=== PATIENT | female | born 1980 ===

== ENCOUNTER 2019-04-14 16:06 | Inpatient (IN) | payer BC ==
[2019-04-14] MEDS ORDERED: Sodium Chloride 0.9% 10 ML SDV IV PRN ×2 (16:32→16:33)
[2019-04-14] MEDS ORDERED: Sodium Chloride 0.9% 2.5 ML Syringe FLUSH PRN ×2 (16:32→16:33)
[2019-04-14] MEDS ORDERED: Sodium Chloride 0.9% 10 ML Syringe FLUSH PRN ×2 (16:32→16:33)
[2019-04-14] MEDS ORDERED: Carboprost Tromethamine 250 MCG/1 ML Amp IM PRN (16:33)
[2019-04-14] MEDS ORDERED: Lidocaine 1% 50 ML MDV INJECT PRN (16:33)
[2019-04-14] MEDS ORDERED: Water For Irrigation,Sterile 1,000 ML Container IRR PRN (16:33)
[2019-04-14] MEDS ORDERED: Misoprostol 200 MCG Tab PO PRN (16:33)
[2019-04-14] MEDS ORDERED: Misoprostol 25 MCG (1/4 of 100 MCG) Tab VAG PRN (16:33)
[2019-04-14] MEDS ORDERED: Methylergonovine 0.2 MG/1 ML Amp IM PRN (16:33)
[2019-04-14] MEDS ORDERED: Butorphanol 1 MG/ML SDV IVPUSH PRN (16:33)
[2019-04-14] MEDS ORDERED: Terbutaline 1 MG/ML SDV SUBCUT PRN (16:33)
[2019-04-14] MEDS ORDERED: Tranexamic Acid 1,000 MG in Sodium Chloride 0.9% 100 ML IV PRN (16:33)
[2019-04-14] MEDS ORDERED: Nalbuphine 10 MG/1 ML Vial IVPUSH PRN (16:33)
[2019-04-14] MEDS ORDERED: Ampicillin 2 GM in Sodium Chloride 0.9% 100 ML IV ONE (16:33)
[2019-04-14] MEDS ORDERED: Ondansetron 4 MG/2 ML SDV IVPUSH PRN (16:33)
[2019-04-14] MEDS ORDERED: Oxytocin/0.9 % Sodium Chloride 30 UNIT/500 ML BAG IV SCH ×2 (16:45)
[2019-04-14] MEDS: Lactated Ringers 1,000 ML IV SCH (17:09)
[2019-04-14 17:26] LABS: BLOOD UREA NITROGEN,BUN 6 mg/dL (7.0-18.0); CARBON DIOXIDE,CO2 19.8 mmol/L (21.0-32.0); CHLORIDE,CL 102 mmol/L (98-107); GLUCOSE RANDOM 80 mg/dL (74-106); POTASSIUM,K 3.6 mmol/L (3.5-5.1); SODIUM,NA 137 mmol/L (136-145)
[2019-04-14] MEDS: Labetalol 100 MG/20 ML MDV IVPUSH PRN ×3 (17:29→19:42)
[2019-04-14] MEDS: Misoprostol 25 MCG (1/4 of 100 MCG) Tab VAG PRN ×2 (17:40→22:10)
[2019-04-14] MEDS ORDERED: Labetalol 100 MG/20 ML MDV ONE (20:16)
[2019-04-14] MEDS ORDERED: hydrALAZINE 20 MG/ML SDV IVPUSH ONE (20:18)
[2019-04-14] MEDS ORDERED: hydrALAZINE 20 MG/ML SDV ONE (20:18)
[2019-04-14] MEDS ORDERED: Acetaminophen 500 MG Tab PO PRN (21:36)
[2019-04-14] MEDS ORDERED: Acetaminophen 500 MG Tab ONE (21:40)
[2019-04-14] MEDS: Ampicillin 1 GM in Sodium Chloride 0.9% 50 ML IV SCH (21:48)
[2019-04-15] MEDS: Ampicillin 1 GM in Sodium Chloride 0.9% 50 ML IV SCH ×4 (01:37→13:23)
[2019-04-15] MEDS: Misoprostol 25 MCG (1/4 of 100 MCG) Tab VAG PRN ×2 (01:58→05:48)
[2019-04-15] MEDS ORDERED: diphenhydrAMINE 25 MG Cap PO ONE (02:25)
[2019-04-15] MEDS ORDERED: diphenhydrAMINE 25 MG Cap ONE (02:27)
[2019-04-15] MEDS ORDERED: Calcium Gluconate 10% 1 GM/10 ML SDV IV PRN (02:54)
[2019-04-15] MEDS ORDERED: Magnesium Sulfate/Water 4 GM in Premix Bag 1 BAG IV ONE (02:54)
[2019-04-15] MEDS ORDERED: Magnesium Sulfate/Water 20 GM/500 ML BAG IV SCH (03:00)
[2019-04-15] MEDS ORDERED: Labetalol 100 MG Tab ONE (03:21)
[2019-04-15] MEDS: Labetalol 100 MG Tab PO SCH ×2 (03:23→11:08)
[2019-04-15] MEDS: Lactated Ringers 1,000 ML IV SCH (08:55)
--- NOTE | 2019-04-15 08:56 | PCM.PREANE ---
Preanesthetic Assessment - Anesthesia/Transfusion/Family Hx Anesthesia History: Prior Anesthesia Without Reaction Family History of Anesthesia Reaction: No Transfusion History: No Prior Transfusion(s) - Review of Systems General: No Symptoms Pulmonary: No Symptoms Cardiovascular: No Symptoms Gastrointestinal: No Symptoms Neurological: No Symptoms Other: Reports: None - Physical Assessment NPO Status Date: 04/15/19 NPO Status Time: 01:00 Vital Signs: Last Vital Signs Temp Pulse 89 04/15/19 03:23 Resp BP 161/93 H 04/15/19 03:23 Pulse Ox Height: 1.7 m Weight: 114.804 kg ASA Class: 2E Mental Status: Alert & Oriented x3 Airway Class: Mallampati = 3 Dentition: Reports: Normal Dentition, Bridge (left lower bridge) Thyro-Mental Finger Breadths: 3 Mouth Opening Finger Breadths: 3 ROM/Head Extension: Full Lungs: Clear to Auscultation, Normal Respiratory Effort Cardiovascular: Regular Rate, Regular Rhythm - Lab Values: Laboratory Last Values WBC 9.05 K/uL (4.0-11.0) 04/14/19 16:51 RBC 3.98 M/uL (4.30-5.90) L 04/14/19 16:51 Hgb 12.5 g/dL (12.0-16.0) 04/14/19 16:51 Hct 36.9 % (36.0-46.0) 04/14/19 16:51 MCV 92.7 fL (80.0-98.0) 04/14/19 16:51 MCH 31.4 pg (27.0-32.0) 04/14/19 16:51 MCHC 33.9 g/dL (31.0-37.0) 04/14/19 16:51 RDW Std Deviation 48.3 fl (28.0-62.0) 04/14/19 16:51 RDW Coeff of Meliton 14 % (11.0-15.0) 04/14/19 16:51 Plt Count 171 K/uL (150-400) 04/14/19 16:51 MPV 11.40 fL (7.40-12.00) 04/14/19 16:51 Nucleated RBC % 0.0 /100WBC 04/14/19 16:51 Nucleated RBCs # 0 K/uL 04/14/19 16:51 Sodium 137 mmol/L (136-145) 04/14/19 16:51 Potassium 3.6 mmol/L (3.5-5.1) 04/14/19 16:51 Chloride 102 mmol/L (98-107) 04/14/19 16:51 Carbon Dioxide 19.8 mmol/L (21.0-32.0) L 04/14/19 16:51 BUN 6 mg/dL (7.0-18.0) L 04/14/19 16:51 Creatinine 0.6 mg/dL (0.6-1.0) 04/14/19 16:51 Est Cr Clr Drug Dosing 124.84 mL/min 04/14/19 16:51 Estimated GFR (MDRD) > 60.0 ml/min 04/14/19 16:51 Glucose 80 mg/dL (74-106) 04/14/19 16:51 Uric Acid 4.9 mg/dL (2.6-7.2) 04/14/19 16:51 Calcium 8.9 mg/dL (8.5-10.1) 04/14/19 16:51 Total Bilirubin 0.6 mg/dL (0.2-1.0) 04/14/19 16:51 AST 26 IU/L (15-37) 04/14/19 16:51 ALT 16 IU/L (14-63) 04/14/19 16:51 Alkaline Phosphatase 92 U/L (46-116) 04/14/19 16:51 Total Protein 7.1 g/dL (6.4-8.2) 04/14/19 16:51 Albumin 2.6 g/dL (3.4-5.0) L 04/14/19 16:51 Globulin 4.5 g/dL (2.6-4.0) H 04/14/19 16:51 Albumin/Globulin Ratio 0.6 (0.9-1.6) L 04/14/19 16:51 Ur Random Creatinine 63.1 mg/dL 04/14/19 20:44 U Random Total Protein 24.1 mg/dL (<11.9) H 04/14/19 20:44 Protein/Creatinin Ratio 0.4 04/14/19 20:44 Blood Type A POSITIVE 04/14/19 16:51 Antibody Screen NEGATIVE 04/14/19 16:51 - Allergies Allergies/Adverse Reactions: Allergies Allergy/AdvReac Type Severity Reaction Status Date / Time No Known Allergies Allergy Verified 04/14/19 16:33 - Acknowledgements Anesthesia Type Planned: Epidural Pt an Appropriate Candidate for the Planned Anesthesia: Yes Alternatives and Risks of Anesthesia Discussed w Pt/Guardian: Yes Pt/Guardian Understands and Agrees with Anesthesia Plan: Yes PreAnesthesia Questionnaire - Past Health History Medical/Surgical History: Denies Medical/Surgical History HEENT History: Reports: None Cardiovascular History: Reports: Hypertension (chronic htn) Respiratory History: Reports: None Genitourinary History: Reports: None 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: Musculoskeletal History: Reports: None Neurological History: Reports: None Psychiatric History: Reports: None Endocrine/Metabolic History: Reports: Hypothyroidism, Obesity/BMI 30+ Hematologic History: Reports: None - Infectious Disease History Infectious Disease History: Reports: Chicken Pox - Past Surgical History HEENT Surgical History: Reports: None Endocrine Surgical History: Reports: None Musculoskeletal Surgical History: Reports: Other (See Below) ( reduction of fracture as a child.) - SUBSTANCE USE Smoking Status *Q: Never Smoker Tobacco Use Within Last Twelve Months: No Second Hand Smoke Exposure: No Recreational Drug Use History: No - CURRENT (IN HOUSE) MEDS Current Meds: Current Medications Acetaminophen (Tylenol Extra Strength) 1,000 mg PO Q6H PRN PRN Reason: Pain Last Admin: 04/14/19 21:44 Dose: 1,000 mg Butorphanol Tartrate (Stadol) 1 mg IVPUSH Q1H PRN PRN Reason: Pain Calcium Gluconate (Calcium Gluconate) 1 gm IV ASDIRECTED PRN PRN Reason: respiratory distress Carboprost Tromethamine (Hemabate Ds) 250 mcg IM ASDIRECTED PRN PRN Reason: Post Hemorrhage Lactated Ringer's (Ringers, Lactated) 1,000 mls @ 150 mls/hr IV ASDIRECTED SUNSHINE Last Admin: 04/14/19 17:09 Dose: 150 mls/hr Oxytocin/Sodium Chloride (Oxytocin 30 Unit/500 Ml-Ns) 30 unit in 500 mls @ 500 mls/hr IV TITRATE SUNSHINE Oxytocin/Sodium Chloride (Oxytocin 30 Unit/500 Ml-Ns) 30 unit in 500 mls @ 2 mls/hr IV TITRATE SUNSHINE; Protocol Tranexamic Acid 1,000 mg/ (Sodium Chloride) 110 mls @ 660 mls/hr IV ONETIME PRN PRN Reason: Bleeding Ampicillin Sodium 1 gm/ Sodium (Chloride) 50 mls @ 100 mls/hr IV Q4H [facility] Last Admin: 04/15/19 05:37 Dose: 100 mls/hr Magnesium Sulfate (Magnesium Sulfate In Water Premix) 20 gm in 500 mls @ 50 mls /hr IV ASDIRECTED SUNSHINE; Protocol Labetalol HCl (Normodyne) 20 mg IVPUSH Q10M PRN; Protocol PRN Reason: Hypertension Last Admin: 04/14/19 19:42 Dose: 40 mg Labetalol HCl (Normodyne) 200 mg PO TID SUNSHINE Last Admin: 04/15/19 03:23 Dose: 200 mg Lidocaine HCl (Xylocaine 1%) 50 ml INJECT ONETIME PRN PRN Reason: Laceration repair Methylergonovine Maleate (Methergine) 0.2 mg IM ASDIRECTED PRN PRN Reason: Post Hemorrhage Misoprostol (Cytotec) 200 mcg PO ONETIME PRN PRN Reason: Post Hemorrhage Misoprostol (Cytotec) 25 mcg VAG ONETIME PRN PRN Reason: Cervical Ripening Misoprostol (Cytotec) 25 mcg VAG Q4H PRN PRN Reason: Cervical Ripening Last Admin: 04/15/19 05:48 Dose: 25 mcg Nalbuphine HCl (Nubain) 10 mg IVPUSH Q1H PRN PRN Reason: Pain (severe 7-10) Ondansetron HCl (Zofran) 4 mg IVPUSH Q4H PRN PRN Reason: Nausea/Vomiting Sodium Chloride (Saline Flush) 10 ml FLUSH ASDIRECTED PRN PRN Reason: Keep Vein Open Sodium Chloride (Saline Flush) 2.5 ml FLUSH ASDIRECTED PRN PRN Reason: Keep Vein Open Sodium Chloride (Normal Saline) 10 ml IV ASDIRECTED PRN PRN Reason: IV Use Sodium Chloride (Saline Flush) 10 ml FLUSH ASDIRECTED PRN PRN Reason: Keep Vein Open Sodium Chloride (Saline Flush) 2.5 ml FLUSH ASDIRECTED PRN PRN Reason: Keep Vein Open Sodium Chloride (Normal Saline) 10 ml IV ASDIRECTED PRN PRN Reason: IV Use Sterile Water (Sterile Water For Irrigation) 1,000 ml IRR ASDIRECTED PRN PRN Reason: delivery Terbutaline Sulfate (Brethine) 0.25 mg SUBCUT ASDIRECTED PRN PRN Reason: Tacysystole Discontinued Medications Acetaminophen (Tylenol Extra Strength) Confirm Administered Dose 1,000 mg .ROUTE .STK-MED ONE Stop: 04/14/19 21:41 Diphenhydramine HCl (Benadryl) 25 mg PO ONETIME ONE Stop: 04/15/19 02:26 Last Admin: 04/15/19 02:30 Dose: 25 mg Diphenhydramine HCl (Benadryl) Confirm Administered Dose 25 mg .ROUTE .STK-MED ONE Stop: 04/15/19 02:28 Hydralazine HCl (Apresoline) Confirm Administered Dose 20 mg .ROUTE .STK-MED ONE Stop: 04/14/19 20:19 Last Admin: 04/14/19 20:21 Dose: 20 mg Hydralazine HCl (Apresoline) 10 mg IVPUSH ONETIME ONE Stop: 04/14/19 20:19 Ampicillin Sodium 2 gm/ Sodium (Chloride) 100 mls @ 200 mls/hr IV ONETIME ONE Stop: 04/14/19 17:02 Last Admin: 04/14/19 17:10 Dose: 200 mls/hr Magnesium Sulfate 4 gm/ Premix 100 mls @ 300 mls/hr IV BOLUS ONE Stop: 04/15/19 03:13 Labetalol HCl (Normodyne) Confirm Administered Dose 100 mg .ROUTE .STK-MED ONE Stop: 04/14/19 20:17 Labetalol HCl (Normodyne) Confirm Administered Dose 200 mg .ROUTE .STK-MED ONE Stop: 04/15/19 03:22
[2019-04-15] MEDS ORDERED: fentaNYL 100 MCG/2 ML SDV ONE (09:03)
[2019-04-15] MEDS ORDERED: Ropivacaine 0.2% 2 MG/ML 20 ML SDV ONE (09:04)
--- NOTE | 2019-04-15 14:20 | PCM.DEL ---
L & D Note - General Info Date of Service: 04/15/19 Mother's Due Date: 04/24/19 - Delivery Note Labor: Augmented by Oxytocin Cervical Ripening Method: Misoprostil Delivery Outcome: Livebirth Delivery Method: Spontaneous Vaginal Delivery-Single Infant Delivery Mode: Spontaneous Presentation: Left Occiput Anterior (MARK) Nuchal Cord: None Prep: Other Anesthesia Type: None Episiotomy Type: None Laceration: None Placenta: Intact, Spontaneous Cord: 3 Vessels Resuscitation Needed: Yes Hutchins: Bulb Syringe (CPAP) Score 1 min: 8 Score 5 min: 9 Delivery Comments (Free Text/Narrative):: Liveborn female weight 4430 grams. (9#12oz) - General Info Date of Service: 04/15/19 - Patient Data Vitals - Most Recent: Last Vital Signs Temp Pulse 86 04/15/19 11:08 Resp BP 150/83 H 04/15/19 11:08 Pulse Ox Weight - Most Recent: 114.804 kg I&O - Last 24 Hours: Intake & Output 04/14/19 04/15/19 04/15/19 22:59 06:59 14:59 Intake Total 50 100 Output Total 650 Balance 50 -550 Lab Results Last 24 Hours: Laboratory Results - last 24 hr 04/14/19 04/14/19 04/14/19 Range/Units 16:51 16:51 16:51 WBC 9.05 (4.0-11.0) K/uL RBC 3.98 L (4.30-5.90) M/uL Hgb 12.5 (12.0-16.0) g/dL Hct 36.9 (36.0-46.0) % MCV 92.7 (80.0-98.0) fL MCH 31.4 (27.0-32.0) pg MCHC 33.9 (31.0-37.0) g/dL RDW Std Deviation 48.3 (28.0-62.0) fl RDW Coeff of Meliton 14 (11.0-15.0) % Plt Count 171 (150-400) K/uL MPV 11.40 (7.40-12.00) fL Nucleated RBC % 0.0 /100WBC Nucleated RBCs # 0 K/uL Sodium 137 (136-145) mmol/L Potassium 3.6 (3.5-5.1) mmol/L Chloride 102 (98-107) mmol/L Carbon Dioxide 19.8 L (21.0-32.0) mmol/L BUN 6 L (7.0-18.0) mg/dL Creatinine 0.6 (0.6-1.0) mg/dL Est Cr Clr Drug Dosing 124.84 mL/min Estimated GFR (MDRD) > 60.0 ml/min Glucose 80 (74-106) mg/dL Uric Acid 4.9 (2.6-7.2) mg/dL Calcium 8.9 (8.5-10.1) mg/dL Total Bilirubin 0.6 (0.2-1.0) mg/dL AST 26 (15-37) IU/L ALT 16 (14-63) IU/L Alkaline Phosphatase 92 (46-116) U/L Total Protein 7.1 (6.4-8.2) g/dL Albumin 2.6 L (3.4-5.0) g/dL Globulin 4.5 H (2.6-4.0) g/dL Albumin/Globulin Ratio 0.6 L (0.9-1.6) Ur Random Creatinine mg/dL U Random Total Protein (<11.9) mg/dL Protein/Creatinin Ratio Blood Type A POSITIVE Antibody Screen NEGATIVE 04/14/19 Range/Units 20:44 WBC (4.0-11.0) K/uL RBC (4.30-5.90) M/uL Hgb (12.0-16.0) g/dL Hct (36.0-46.0) % MCV (80.0-98.0) fL MCH (27.0-32.0) pg MCHC (31.0-37.0) g/dL RDW Std Deviation (28.0-62.0) fl RDW Coeff of Meliton (11.0-15.0) % Plt Count (150-400) K/uL MPV (7.40-12.00) fL Nucleated RBC % /100WBC Nucleated RBCs # K/uL Sodium (136-145) mmol/L Potassium (3.5-5.1) mmol/L Chloride (98-107) mmol/L Carbon Dioxide (21.0-32.0) mmol/L BUN (7.0-18.0) mg/dL Creatinine (0.6-1.0) mg/dL Est Cr Clr Drug Dosing mL/min Estimated GFR (MDRD) ml/min Glucose (74-106) mg/dL Uric Acid (2.6-7.2) mg/dL Calcium (8.5-10.1) mg/dL Total Bilirubin (0.2-1.0) mg/dL AST (15-37) IU/L ALT (14-63) IU/L Alkaline Phosphatase (46-116) U/L Total Protein (6.4-8.2) g/dL Albumin (3.4-5.0) g/dL Globulin (2.6-4.0) g/dL Albumin/Globulin Ratio (0.9-1.6) Ur Random Creatinine 63.1 mg/dL U Random Total Protein 24.1 H (<11.9) mg/dL Protein/Creatinin Ratio 0.4 Blood Type Antibody Screen Med Orders - Current: Current Medications Acetaminophen (Tylenol Extra Strength) 1,000 mg PO Q6H PRN PRN Reason: Pain Last Admin: 04/14/19 21:44 Dose: 1,000 mg Butorphanol Tartrate (Stadol) 1 mg IVPUSH Q1H PRN PRN Reason: Pain Calcium Gluconate (Calcium Gluconate) 1 gm IV ASDIRECTED PRN PRN Reason: respiratory distress Carboprost Tromethamine (Hemabate Ds) 250 mcg IM ASDIRECTED PRN PRN Reason: Post Hemorrhage Lactated Ringer's (Ringers, Lactated) 1,000 mls @ 150 mls/hr IV ASDIRECTED SUNSHINE Last Admin: 04/15/19 08:55 Dose: 150 mls/hr Oxytocin/Sodium Chloride (Oxytocin 30 Unit/500 Ml-Ns) 30 unit in 500 mls @ 500 mls/hr IV TITRATE SUNSHINE Oxytocin/Sodium Chloride (Oxytocin 30 Unit/500 Ml-Ns) 30 unit in 500 mls @ 2 mls/hr IV TITRATE SUNSHINE; Protocol Last Titration: 04/15/19 11:41 Dose: 10 munits/min, 10 mls/hr Tranexamic Acid 1,000 mg/ (Sodium Chloride) 110 mls @ 660 mls/hr IV ONETIME PRN PRN Reason: Bleeding Ampicillin Sodium 1 gm/ Sodium (Chloride) 50 mls @ 100 mls/hr IV Q4H [facility] Last Admin: 04/15/19 13:23 Dose: 100 mls/hr Magnesium Sulfate (Magnesium Sulfate In Water Premix) 20 gm in 500 mls @ 50 mls /hr IV ASDIRECTED SUNSHINE; Protocol Labetalol HCl (Normodyne) 20 mg IVPUSH Q10M PRN; Protocol PRN Reason: Hypertension Last Admin: 04/14/19 19:42 Dose: 40 mg Labetalol HCl (Normodyne) 200 mg PO TID SUNSHINE Last Admin: 04/15/19 11:08 Dose: 200 mg Lidocaine HCl (Xylocaine 1%) 50 ml INJECT ONETIME PRN PRN Reason: Laceration repair Methylergonovine Maleate (Methergine) 0.2 mg IM ASDIRECTED PRN PRN Reason: Post Hemorrhage Misoprostol (Cytotec) 200 mcg PO ONETIME PRN PRN Reason: Post Hemorrhage Misoprostol (Cytotec) 25 mcg VAG ONETIME PRN PRN Reason: Cervical Ripening Misoprostol (Cytotec) 25 mcg VAG Q4H PRN PRN Reason: Cervical Ripening Last Admin: 04/15/19 05:48 Dose: 25 mcg Nalbuphine HCl (Nubain) 10 mg IVPUSH Q1H PRN PRN Reason: Pain (severe 7-10) Ondansetron HCl (Zofran) 4 mg IVPUSH Q4H PRN PRN Reason: Nausea/Vomiting Sodium Chloride (Saline Flush) 10 ml FLUSH ASDIRECTED PRN PRN Reason: Keep Vein Open Sodium Chloride (Saline Flush) 2.5 ml FLUSH ASDIRECTED PRN PRN Reason: Keep Vein Open Sodium Chloride (Normal Saline) 10 ml IV ASDIRECTED PRN PRN Reason: IV Use Sodium Chloride (Saline Flush) 10 ml FLUSH ASDIRECTED PRN PRN Reason: Keep Vein Open Sodium Chloride (Saline Flush) 2.5 ml FLUSH ASDIRECTED PRN PRN Reason: Keep Vein Open Sodium Chloride (Normal Saline) 10 ml IV ASDIRECTED PRN PRN Reason: IV Use Sterile Water (Sterile Water For Irrigation) 1,000 ml IRR ASDIRECTED PRN PRN Reason: delivery Terbutaline Sulfate (Brethine) 0.25 mg SUBCUT ASDIRECTED PRN PRN Reason: Tacysystole Discontinued Medications Acetaminophen (Tylenol Extra Strength) Confirm Administered Dose 1,000 mg .ROUTE .STK-MED ONE Stop: 04/14/19 21:41 Diphenhydramine HCl (Benadryl) 25 mg PO ONETIME ONE Stop: 04/15/19 02:26 Last Admin: 04/15/19 02:30 Dose: 25 mg Diphenhydramine HCl (Benadryl) Confirm Administered Dose 25 mg .ROUTE .STK-MED ONE Stop: 04/15/19 02:28 Fentanyl (Sublimaze) Confirm Administered Dose 100 mcg .ROUTE .STK-MED ONE Stop: 04/15/19 09:04 Hydralazine HCl (Apresoline) Confirm Administered Dose 20 mg .ROUTE .STK-MED ONE Stop: 04/14/19 20:19 Last Admin: 04/14/19 20:21 Dose: 20 mg Hydralazine HCl (Apresoline) 10 mg IVPUSH ONETIME ONE Stop: 04/14/19 20:19 Ampicillin Sodium 2 gm/ Sodium (Chloride) 100 mls @ 200 mls/hr IV ONETIME ONE Stop: 04/14/19 17:02 Last Admin: 04/14/19 17:10 Dose: 200 mls/hr Magnesium Sulfate 4 gm/ Premix 100 mls @ 300 mls/hr IV BOLUS ONE Stop: 04/15/19 03:13 Fentanyl/Bupivacaine HCl ([id number] 2 Mcg/Ml-0.125%) Confirm Administered Dose 100 mls @ as directed .ROUTE .STK-MED ONE Stop: 04/15/19 09:04 Labetalol HCl (Normodyne) Confirm Administered Dose 100 mg .ROUTE .STK-MED ONE Stop: 04/14/19 20:17 Labetalol HCl (Normodyne) Confirm Administered Dose 200 mg .ROUTE .STK-MED ONE Stop: 04/15/19 03:22 Ropivacaine (Naropin 0.2%) Confirm Administered Dose 20 ml .ROUTE .STK-MED ONE Stop: 04/15/19 09:05 - Problem List & Annotations (1) Chronic hypertension affecting SNOMED Code(s): 52603038 Code(s): O10.919 - UNSP PRE-EXISTING HTN COMP , UNSP TRIMESTER Status: Acute Current Visit: Yes (2) Vaginal delivery SNOMED Code(s): 113784102 Code(s): O80 - ENCOUNTER FOR FULL-TERM UNCOMPLICATED DELIVERY Status: Acute Current Visit: Yes - Problem List Review Problem List Initiated/Reviewed/Updated: Yes - My Orders Last 24 Hours: My Active Orders 04/14/19 16:32 Bedrest [RC] ASDIRECTED Height and Weight [RC] DAILY Intake and Output [RC] QSHIFT Notify Provider [RC] PRN Oxygen Therapy [RC] PRN Vital Signs [RC] ASDIRECTED Labetalol [Normodyne] 20 mg IVPUSH Q10M PRN Sodium Chloride 0.9% [Normal Saline] 10 ml IV ASDIRECTED PRN Sodium Chloride 0.9% [Saline Flush] 10 ml FLUSH ASDIRECTED PRN Sodium Chloride 0.9% [Saline Flush] 2.5 ml FLUSH ASDIRECTED PRN Electronic Heart Tones Ext w TOCO [WOMSER] Per Unit Routine Peripheral IV Insertion Adult [OM.PC] Routine 04/14/19 16:33 Butorphanol [Stadol] 1 mg IVPUSH Q1H PRN Carboprost Tromethamine [Hemabate DS] 250 mcg IM ASDIRECTED PRN Lidocaine 1% [Xylocaine 1%] 50 ml INJECT ONETIME PRN Methylergonovine [Methergine] 0.2 mg IM ASDIRECTED PRN Nalbuphine [Nubain] 10 mg IVPUSH Q1H PRN Ondansetron [Zofran] 4 mg IVPUSH Q4H PRN Sodium Chloride 0.9% [Normal Saline] 10 ml IV ASDIRECTED PRN Sodium Chloride 0.9% [Saline Flush] 10 ml FLUSH ASDIRECTED PRN Sodium Chloride 0.9% [Saline Flush] 2.5 ml FLUSH ASDIRECTED PRN Terbutaline [Brethine] 0.25 mg SUBCUT ASDIRECTED PRN Tranexamic Acid [Cyklokapron] 1,000 mg Sodium Chloride 0.9% [Normal Saline] 100 ml IV ONETIME Water For Irrigation,Sterile [Sterile Water for Irrigation] 1,000 ml IRR ASDIRECTED PRN miSOPROStol [Cytotec] 200 mcg PO ONETIME PRN miSOPROStol [Cytotec] 25 mcg VAG ONETIME PRN miSOPROStol [Cytotec] 25 mcg VAG Q4H PRN Resuscitation Status Routine 04/14/19 16:34 Patient Status [ADT] Routine Communication Order [RC] ASDIRECTED Communication Order [RC] ASDIRECTED Heart Tones [RC] ASDIRECTED Heart Tones [RC] CONTINUOUS Non Stress Test [RC] PER UNIT ROUTINE May Shower [RC] ASDIRECTED Notify Provider [RC] PRN Notify Provider [RC] PRN Notify Provider [RC] PRN Notify Provider [RC] STAT Up ad Charissa [RC] ASDIRECTED Vaginal Exam [RC] PRN Vital Signs [RC] PER UNIT ROUTINE Scalp Electrode [WOMSER] Per Unit Routine Peripheral IV Insertion Adult [OM.PC] Routine 04/14/19 16:45 Lactated Ringers [Ringers, Lactated] 1,000 ml IV ASDIRECTED Oxytocin/0.9 % Sodium Chloride [Oxytocin 30 Unit/500 ML-NS] 30 unit in 500 ml IV TITRATE Oxytocin/0.9 % Sodium Chloride [Oxytocin 30 Unit/500 ML-NS] 30 unit in 500 ml IV TITRATE Medication Administration Instruction [OM.PC] Q3H 04/14/19 21:00 Ampicillin 1 gm Sodium Chloride 0.9% [Normal Saline] 50 ml IV Q4H 04/15/19 Breakfast Clear Liquid Diet [DIET]
[2019-04-15] MEDS ORDERED: oxyCODONE 5 MG Tab PO PRN (14:22)
[2019-04-15] MEDS ORDERED: Acetaminophen 500 MG Tab PO PRN ×2 (14:22)
[2019-04-15] MEDS ORDERED: Bisacodyl 10 MG Supp RECTAL PRN (14:22)
[2019-04-15] MEDS ORDERED: Lanolin 100% Cream 7 GM Tube TOP PRN (14:22)
[2019-04-15] MEDS ORDERED: Tranexamic Acid 1,000 MG in Sodium Chloride 0.9% 100 ML IV PRN (14:22)
[2019-04-15] MEDS ORDERED: Witch Hazel Medicated Pads 40/Jar TOP PRN (14:22)
[2019-04-15] MEDS ORDERED: Benzocaine/Menthol 20%-0.5% Spray 78 GM Cannister TOP PRN (14:22)
[2019-04-15] MEDS ORDERED: Ibuprofen 400 MG Tab PO PRN (14:22)
[2019-04-15] MEDS ORDERED: Oxytocin/0.9 % Sodium Chloride 30 UNIT/500 ML BAG ONE (14:39)
[2019-04-15] MEDS ORDERED: Labetalol 100 MG Tab PO SCH (21:00)
--- NOTE | 2019-04-16 06:10 | PCM48HPAN ---
Post Anesthesia Note - EVALUATION WITHIN 48HRS OF ANESTHETIC Vital Signs in Normal Range: Yes Patient Participated in Evaluation: Yes Respiratory Function Stable: Yes Airway Patent: Yes Cardiovascular Function Stable: Yes Hydration Status Stable: Yes Pain Control Satisfactory: Yes Nausea and Vomiting Control Satisfactory: Yes Mental Status Recovered: Yes Vital Signs: Last Vital Signs Temp 36.4 C 04/16/19 04:08 Pulse 86 04/16/19 04:08 Resp 18 04/16/19 04:08 BP 124/94 H 04/16/19 04:08 Pulse Ox 96 04/16/19 04:08 - COMMENTS/OBSERVATIONS Free Text/Narrative:: The patient tolerated the procedure well. There were no apparent anesthetic complications at this time.
--- NOTE | 2019-04-16 07:36 | OR ---
SURGEON: Khushbu Wilson M.D. DATE OF PROCEDURE: 04/15/2019 PREOPERATIVE DIAGNOSES: 38 and 5/7 weeks intrauterine , gestational hypertension with exacerbation. POSTOPERATIVE DIAGNOSES: 38 and 5/7 weeks intrauterine , gestational hypertension with exacerbation. PROCEDURE: Cytotec and Pitocin induction of labor, term spontaneous vaginal delivery. PRIMARY SURGEON: Khushbu Wilson M.D. ANESTHESIA: Epidural. ESTIMATED BLOOD LOSS: Less than 200 mL. FINDINGS: Liveborn female. score 8 and 9, weighing 4430 g. Placenta spontaneous, Schultze intact with 3 vessels. Perineum intact. COMPLICATIONS: None known. DISPOSITION: Mother and baby are in LDR in good condition. BRIEF HISTORY: This is a 39-year-old female, she presents for induction of labor. She has been followed through with chronic hypertension. She has been on labetalol 100 mg twice a day for most of the . Last week, she was increased to 200 mg twice a day. Plan was for delivery at 39 weeks. She presented at 38 and 4/7 weeks in the clinic for appointment with blood pressure in the 150/90 range. She was sent to labor and delivery. She received IV labetalol followed by oral labetalol with improvement in her blood pressures. Laboratory studies were negative for any other preeclamptic signs. She also denied any neurologic symptoms. Therefore, she was allowed to labor without magnesium, and she was started with Cytotec 4 doses. Following this, she was 3 cm, 80%, -3 station. Artificial rupture of membranes was performed. She was known to be group B Strep positive, and she received multiple doses of ampicillin for group B strep prophylaxis. She progressed to complete. DESCRIPTION OF PROCEDURE: With the patient in dorsolithotomy position, the patient pushed over a 20-minute time period to a 5+ station, at which time the head was delivered spontaneously and atraumatically over the perineum with support, with subsequent delivery of the infant's shoulders and body without any difficulty. However, due to suspected macrosomia, Jonatan maneuver, suprapubic pressure, and rotation of the anterior shoulder were performed, but time from delivery of the head to the shoulder was approximately 30 seconds with subsequent delivery of the infant's body without any difficulty. The infant was bulb suctioned by nose and mouth, and after the cord had ceased to pulsate, it was doubly clamped and cut. The was handed to the mother in the presence of the nurse attending delivery. The infant was a liveborn female, score of 8 and 9, weight of 4430 g. Cord blood was collected for cord ABGs, as well as routine cord blood sampling. Pitocin was initiated after delivery of the infant to assist with delivery of the placenta, which was delivered spontaneously, Schultze intact with 3 vessels. Upon inspection of the pelvis and perineum, there were no periurethral, vaginal sidewall, cervical, rectal, or perineal lacerations. EBL was less than 200 mL. There were no known complications. Mother and baby remained in LDR in good condition. SYLVESTER MOSHER /[id number]
--- NOTE | 2019-04-16 08:23 | PCM.PNPP ---
- General Info Date of Service: 04/16/19 Subjective Update: minimal pain, tolerating regular diet, denies headache or visual changes, moderate lochia. Functional Status: Reports: Pain Controlled - Review of Systems General: Reports: No Symptoms HEENT: Reports: No Symptoms Pulmonary: Reports: No Symptoms Cardiovascular: Reports: No Symptoms Gastrointestinal: Reports: No Symptoms Genitourinary: Reports: No Symptoms Musculoskeletal: Reports: No Symptoms Skin: Reports: No Symptoms Neurological: Reports: No Symptoms Psychiatric: Reports: No Symptoms - Patient Data Vital Signs - Most Recent: Last Vital Signs Temp 36.2 C 04/16/19 07:37 Pulse 86 04/16/19 04:08 Resp 18 04/16/19 07:37 BP 159/88 H 04/16/19 07:37 Pulse Ox 95 04/16/19 07:37 Weight - Most Recent: 114.804 kg Lab Results - Last 24 Hours: Laboratory Results - last 24 hr 04/15/19 04/16/19 Range/Units 14:03 05:13 Hgb 10.5 L (12.0-16.0) g/dL Hct 31.6 L (36.0-46.0) % Cord ABG pH 7.196 (7.18-7.38) Cord ABG Base Excess -7 (-10--2) Cord VBG pH 7.312 (7.25-7.45) Cord VBG Base Excess -5 (-10--2) Med Orders - Current: Current Medications Acetaminophen (Tylenol Extra Strength) 500 mg PO Q4H PRN PRN Reason: Pain Acetaminophen (Tylenol Extra Strength) 1,000 mg PO Q4H PRN PRN Reason: Pain Benzocaine/Menthol (Dermoplast Pain Relief 20%-0.5% [place]) 78 gm TOP ASDIRECTED PRN PRN Reason: Perineal Comfort Measure Last Admin: 04/15/19 15:45 Dose: 1 applic Bisacodyl (Dulcolax) 10 mg RECTAL ONETIME PRN PRN Reason: Constipation Docusate Sodium (Colace) 100 mg PO BID PRN PRN Reason: Constipation Emollient Ointment (Lansinoh Hpa) 0 gm TOP ASDIRECTED PRN PRN Reason: Sore Nipples Last Admin: 04/15/19 15:44 Dose: 1 applic Tranexamic Acid 1,000 mg/ (Sodium Chloride) 110 mls @ 660 mls/hr IV ONETIME PRN PRN Reason: Bleeding Ibuprofen (Motrin) 400 mg PO Q4H PRN PRN Reason: Pain Ibuprofen (Motrin) 800 mg PO Q6H PRN PRN Reason: Pain Labetalol HCl (Normodyne) 400 mg PO BID [facility] Levothyroxine Sodium (Levothyroxine) 125 mcg PO ACBREAKFAST [facility] Oxycodone HCl (Oxycodone) 5 mg PO Q2H PRN PRN Reason: Pain Witch Estefania (Tucks) 1 pad TOP ASDIRECTED PRN PRN Reason: comfort care Discontinued Medications Acetaminophen (Tylenol Extra Strength) 1,000 mg PO Q6H PRN PRN Reason: Pain Last Admin: 04/14/19 21:44 Dose: 1,000 mg Acetaminophen (Tylenol Extra Strength) Confirm Administered Dose 1,000 mg .ROUTE .STK-MED ONE Stop: 04/14/19 21:41 Butorphanol Tartrate (Stadol) 1 mg IVPUSH Q1H PRN PRN Reason: Pain Calcium Gluconate (Calcium Gluconate) 1 gm IV ASDIRECTED PRN PRN Reason: respiratory distress Carboprost Tromethamine (Hemabate Ds) 250 mcg IM ASDIRECTED PRN PRN Reason: Post Hemorrhage Diphenhydramine HCl (Benadryl) 25 mg PO ONETIME ONE Stop: 04/15/19 02:26 Last Admin: 04/15/19 02:30 Dose: 25 mg Diphenhydramine HCl (Benadryl) Confirm Administered Dose 25 mg .ROUTE .STK-MED ONE Stop: 04/15/19 02:28 Fentanyl (Sublimaze) Confirm Administered Dose 100 mcg .ROUTE .STK-MED ONE Stop: 04/15/19 09:04 Hydralazine HCl (Apresoline) Confirm Administered Dose 20 mg .ROUTE .STK-MED ONE Stop: 04/14/19 20:19 Last Admin: 04/14/19 20:21 Dose: 20 mg Hydralazine HCl (Apresoline) 10 mg IVPUSH ONETIME ONE Stop: 04/14/19 20:19 Ampicillin Sodium 2 gm/ Sodium (Chloride) 100 mls @ 200 mls/hr IV ONETIME ONE Stop: 04/14/19 17:02 Last Admin: 04/14/19 17:10 Dose: 200 mls/hr Lactated Ringer's (Ringers, Lactated) 1,000 mls @ 150 mls/hr IV ASDIRECTED SUNSHINE Last Admin: 04/15/19 08:55 Dose: 150 mls/hr Oxytocin/Sodium Chloride (Oxytocin 30 Unit/500 Ml-Ns) 30 unit in 500 mls @ 500 mls/hr IV TITRATE [facility] Last Admin: 04/15/19 14:52 Dose: 500 mls/hr Oxytocin/Sodium Chloride (Oxytocin 30 Unit/500 Ml-Ns) 30 unit in 500 mls @ 2 mls/hr IV TITRATE SUNSHINE; Protocol Last Titration: 04/15/19 11:41 Dose: 10 munits/min, 10 mls/hr Tranexamic Acid 1,000 mg/ (Sodium Chloride) 110 mls @ 660 mls/hr IV ONETIME PRN PRN Reason: Bleeding Ampicillin Sodium 1 gm/ Sodium (Chloride) 50 mls @ 100 mls/hr IV Q4H SUNSHINE Last Admin: 04/15/19 13:23 Dose: 100 mls/hr Magnesium Sulfate 4 gm/ Premix 100 mls @ 300 mls/hr IV BOLUS ONE Stop: 04/15/19 03:13 Magnesium Sulfate (Magnesium Sulfate In Water Premix) 20 gm in 500 mls @ 50 mls /hr IV ASDIRECTED SUNSHINE; Protocol Fentanyl/Bupivacaine HCl (Lfggdljx-Paiwf-Zh 2 Mcg/Ml-0.125%) Confirm Administered Dose 100 mls @ as directed .ROUTE .STK-MED ONE Stop: 04/15/19 09:04 Oxytocin/Sodium Chloride (Oxytocin 30 Unit/500 Ml-Ns) Confirm Administered Dose 30 unit in 500 mls @ as directed .ROUTE .STK-MED ONE Stop: 04/15/19 14:40 Labetalol HCl (Normodyne) 20 mg IVPUSH Q10M PRN; Protocol PRN Reason: Hypertension Last Admin: 04/14/19 19:42 Dose: 40 mg Labetalol HCl (Normodyne) Confirm Administered Dose 100 mg .ROUTE .STK-MED ONE Stop: 04/14/19 20:17 Labetalol HCl (Normodyne) 200 mg PO TID [facility] Last Admin: 04/15/19 11:08 Dose: 200 mg Labetalol HCl (Normodyne) Confirm Administered Dose 200 mg .ROUTE .[place] ONE Stop: 04/15/19 03:22 Labetalol HCl (Normodyne) 300 mg PO BID [facility]SHINE Last Admin: 04/15/19 20:46 Dose: 300 mg Lidocaine HCl (Xylocaine 1%) 50 ml INJECT ONETIME PRN PRN Reason: Laceration repair Methylergonovine Maleate (Methergine) 0.2 mg IM ASDIRECTED PRN PRN Reason: Post Hemorrhage Misoprostol (Cytotec) 200 mcg PO ONETIME PRN PRN Reason: Post Hemorrhage Misoprostol (Cytotec) 25 mcg VAG ONETIME PRN PRN Reason: Cervical Ripening Misoprostol (Cytotec) 25 mcg VAG Q4H PRN PRN Reason: Cervical Ripening Last Admin: 04/15/19 05:48 Dose: 25 mcg Nalbuphine HCl (Nubain) 10 mg IVPUSH Q1H PRN PRN Reason: Pain (severe 7-10) Ondansetron HCl (Zofran) 4 mg IVPUSH Q4H PRN PRN Reason: Nausea/Vomiting Ropivacaine (Naropin 0.2%) Confirm Administered Dose 20 ml .ROUTE .[place] ONE Stop: 04/15/19 09:05 Sodium Chloride (Saline Flush) 10 ml FLUSH ASDIRECTED PRN PRN Reason: Keep Vein Open Sodium Chloride (Saline Flush) 2.5 ml FLUSH ASDIRECTED PRN PRN Reason: Keep Vein Open Sodium Chloride (Normal Saline) 10 ml IV ASDIRECTED PRN PRN Reason: IV Use Sodium Chloride (Saline Flush) 10 ml FLUSH ASDIRECTED PRN PRN Reason: Keep Vein Open Sodium Chloride (Saline Flush) 2.5 ml FLUSH ASDIRECTED PRN PRN Reason: Keep Vein Open Sodium Chloride (Normal Saline) 10 ml IV ASDIRECTED PRN PRN Reason: IV Use Sterile Water (Sterile Water For Irrigation) 1,000 ml IRR ASDIRECTED PRN PRN Reason: delivery Last Admin: 04/15/19 14:53 Dose: 1,000 ml Terbutaline Sulfate (Brethine) 0.25 mg SUBCUT ASDIRECTED PRN PRN Reason: Tacysystole - Infant Interaction Disposition, : in Room with Family Infant Interaction: Unable to Hold Infant at this Time Feeding: Breastfed ; Nursed Well Support Person: - Recovery Exam Fundal Tone: Firm Fundal Level: At Umbilicus Lochia Amount: Scant Lochia Color: Rubra/Red - Exam General: Alert, Oriented HEENT: Pupils Equal Neck: Supple Lungs: Clear to Auscultation, Normal Respiratory Effort Cardiovascular: Regular Rate, Regular Rhythm GI/Abdominal Exam: Normal Bowel Sounds, Soft, Non-Tender, No Organomegaly, No Distention Extremities: Normal Inspection, Non-Tender. No: No Pedal Edema (1+ equal bilaterally) Skin: Warm, Dry, Intact Neurological: No New Focal Deficit Psy/Mental Status: Alert, Normal Affect, Normal Mood - Problem List & Annotations (1) Chronic hypertension affecting SNOMED Code(s): 07704076 Code(s): O10.919 - UNSP PRE-EXISTING HTN COMP , UNSP TRIMESTER Status: Acute Current Visit: Yes (2) Vaginal delivery SNOMED Code(s): 895473431 Code(s): O80 - ENCOUNTER FOR FULL-TERM UNCOMPLICATED DELIVERY Status: Acute Current Visit: Yes - Problem List Review Problem List Initiated/Reviewed/Updated: Yes - My Orders Last 24 Hours: My Active Orders 04/15/19 14:22 Patient Status [ADT] Routine May Shower [RC] ASDIRECTED Up ad Charissa [RC] ASDIRECTED Vital Signs [RC] PER UNIT ROUTINE Acetaminophen [Tylenol Extra Strength] 1,000 mg PO Q4H PRN Acetaminophen [Tylenol Extra Strength] 500 mg PO Q4H PRN Benzocaine/Menthol [Dermoplast Pain Relief 20%-0.5% [place]] 78 gm TOP ASDIRECTED PRN Bisacodyl [Dulcolax] 10 mg RECTAL ONETIME PRN Docusate Sodium [Colace] 100 mg PO BID PRN Ibuprofen [Motrin] 400 mg PO Q4H PRN Ibuprofen [Motrin] 800 mg PO Q6H PRN Lanolin [Lansinoh HPA] See Dose Instructions TOP ASDIRECTED PRN Tranexamic Acid [Cyklokapron] 1,000 mg Sodium Chloride 0.9% [Normal Saline] 100 ml IV ONETIME Witch Estefania [Tucks] 1 pad TOP ASDIRECTED PRN oxyCODONE 5 mg PO Q2H PRN Assess Lochia [WOMSER] Per Unit Routine Assess Uterine Involution [WOMSER] Per Unit Routine Perineal Care [OM.PC] Per Unit Routine Peripheral IV Discontinue [OM.PC] Routine Resuscitation Status Routine 04/15/19 Dinner Regular Diet [DIET] 04/16/19 09:00 Labetalol [Normodyne] 400 mg PO BID 04/17/19 07:30 Levothyroxine 125 mcg PO ACBREAKFAST - Assessment Assessment:: BP still elevated on labetalol 300 mg BID, will increase to 400 mg BID and continue inpatient at this time. Restart levothyroxine - Plan Plan:: Continue care.
[2019-04-16] MEDS: Docusate Sodium 100 MG Cap PO PRN (08:37)
[2019-04-16] MEDS ORDERED: Labetalol 100 MG Tab PO SCH (09:00)
[2019-04-16] MEDS: Levothyroxine 125 MCG Tab PO SCH (09:38)
[2019-04-16] MEDS ORDERED: Labetalol 100 MG Tab PO ONE (20:45)
[2019-04-16] MEDS: Ibuprofen 800 MG Tab PO PRN (22:45)
[2019-04-17] MEDS: Labetalol 100 MG Tab PO SCH ×3 (05:56→22:08)
--- NOTE | 2019-04-17 07:25 | PCM.PNPP ---
- General Info Date of Service: 04/17/19 Subjective Update: Denies headache or visual changes. well. No shortness of breath or chest pain. Functional Status: Reports: Pain Controlled, Tolerating Diet, Ambulating, Urinating - Review of Systems General: Reports: No Symptoms HEENT: Reports: No Symptoms Pulmonary: Reports: No Symptoms Cardiovascular: Reports: No Symptoms Gastrointestinal: Reports: No Symptoms Genitourinary: Reports: No Symptoms Musculoskeletal: Reports: No Symptoms Skin: Reports: No Symptoms Neurological: Reports: No Symptoms Psychiatric: Reports: No Symptoms - General Info Date of Service: 04/17/19 - Patient Data Vital Signs - Most Recent: Last Vital Signs Temp 37.2 C 04/17/19 04:12 Pulse 83 04/17/19 05:56 Resp 17 04/17/19 04:12 BP 159/97 H 04/17/19 05:56 Pulse Ox 96 04/17/19 04:12 Weight - Most Recent: 114.804 kg Med Orders - Current: Current Medications Acetaminophen (Tylenol Extra Strength) 500 mg PO Q4H PRN PRN Reason: Pain Acetaminophen (Tylenol Extra Strength) 1,000 mg PO Q4H PRN PRN Reason: Pain Last Admin: 04/16/19 22:46 Dose: 1,000 mg Benzocaine/Menthol (Dermoplast Pain Relief 20%-0.5% [employer]) 78 gm TOP ASDIRECTED PRN PRN Reason: Perineal Comfort Measure Last Admin: 04/15/19 15:45 Dose: 1 applic Bisacodyl (Dulcolax) 10 mg RECTAL ONETIME PRN PRN Reason: Constipation Docusate Sodium (Colace) 100 mg PO BID PRN PRN Reason: Constipation Last Admin: 04/16/19 08:37 Dose: 100 mg Emollient Ointment (Lansinoh Hpa) 0 gm TOP ASDIRECTED PRN PRN Reason: Sore Nipples Last Admin: 04/15/19 15:44 Dose: 1 applic Tranexamic Acid 1,000 mg/ (Sodium Chloride) 110 mls @ 660 mls/hr IV ONETIME PRN PRN Reason: Bleeding Ibuprofen (Motrin) 400 mg PO Q4H PRN PRN Reason: Pain Ibuprofen (Motrin) 800 mg PO Q6H PRN PRN Reason: Pain Last Admin: 04/16/19 22:45 Dose: 800 mg Labetalol HCl (Normodyne) 600 mg PO TID [facility] Last Admin: 04/17/19 05:56 Dose: 600 mg Levothyroxine Sodium (Levothyroxine) 125 mcg PO ACBREAKFAST [facility] Last Admin: 04/16/19 09:38 Dose: 125 mcg Oxycodone HCl (Oxycodone) 5 mg PO Q2H PRN PRN Reason: Pain Witch Estefania (Tucks) 1 pad TOP ASDIRECTED PRN PRN Reason: comfort care Discontinued Medications Acetaminophen (Tylenol Extra Strength) 1,000 mg PO Q6H PRN PRN Reason: Pain Last Admin: 04/14/19 21:44 Dose: 1,000 mg Acetaminophen (Tylenol Extra Strength) Confirm Administered Dose 1,000 mg .ROUTE .STK-MED ONE Stop: 04/14/19 21:41 Butorphanol Tartrate (Stadol) 1 mg IVPUSH Q1H PRN PRN Reason: Pain Calcium Gluconate (Calcium Gluconate) 1 gm IV ASDIRECTED PRN PRN Reason: respiratory distress Carboprost Tromethamine (Hemabate Ds) 250 mcg IM ASDIRECTED PRN PRN Reason: Post Hemorrhage Diphenhydramine HCl (Benadryl) 25 mg PO ONETIME ONE Stop: 04/15/19 02:26 Last Admin: 04/15/19 02:30 Dose: 25 mg Diphenhydramine HCl (Benadryl) Confirm Administered Dose 25 mg .ROUTE .STK-MED ONE Stop: 04/15/19 02:28 Fentanyl (Sublimaze) Confirm Administered Dose 100 mcg .ROUTE .STK-MED ONE Stop: 04/15/19 09:04 Hydralazine HCl (Apresoline) Confirm Administered Dose 20 mg .ROUTE .STK-MED ONE Stop: 04/14/19 20:19 Last Admin: 04/14/19 20:21 Dose: 20 mg Hydralazine HCl (Apresoline) 10 mg IVPUSH ONETIME ONE Stop: 04/14/19 20:19 Ampicillin Sodium 2 gm/ Sodium (Chloride) 100 mls @ 200 mls/hr IV ONETIME ONE Stop: 04/14/19 17:02 Last Admin: 04/14/19 17:10 Dose: 200 mls/hr Lactated Ringer's (Ringers, Lactated) 1,000 mls @ 150 mls/hr IV ASDIRECTED SUNSHINE Last Admin: 04/15/19 08:55 Dose: 150 mls/hr Oxytocin/Sodium Chloride (Oxytocin 30 Unit/500 Ml-Ns) 30 unit in 500 mls @ 500 mls/hr IV TITRATE [place] Last Admin: 04/15/19 14:52 Dose: 500 mls/hr Oxytocin/Sodium Chloride (Oxytocin 30 Unit/500 Ml-Ns) 30 unit in 500 mls @ 2 mls/hr IV TITRATE [place]; Protocol Last Titration: 04/15/19 11:41 Dose: 10 munits/min, 10 mls/hr Tranexamic Acid 1,000 mg/ (Sodium Chloride) 110 mls @ 660 mls/hr IV ONETIME PRN PRN Reason: Bleeding Ampicillin Sodium 1 gm/ Sodium (Chloride) 50 mls @ 100 mls/hr IV Q4H [place] Last Admin: 04/15/19 13:23 Dose: 100 mls/hr Magnesium Sulfate 4 gm/ Premix 100 mls @ 300 mls/hr IV BOLUS ONE Stop: 04/15/19 03:13 Magnesium Sulfate (Magnesium Sulfate In Water Premix) 20 gm in 500 mls @ 50 mls /hr IV ASDIRECTED SUNSHINE; Protocol Fentanyl/Bupivacaine HCl (Hcyhyjay-Gonns-Az 2 Mcg/Ml-0.125%) Confirm Administered Dose 100 mls @ as directed .ROUTE .STK-MED ONE Stop: 04/15/19 09:04 Oxytocin/Sodium Chloride (Oxytocin 30 Unit/500 Ml-Ns) Confirm Administered Dose 30 unit in 500 mls @ as directed .ROUTE .STK-MED ONE Stop: 04/15/19 14:40 Last Admin: 04/16/19 09:20 Dose: Not Given Labetalol HCl (Normodyne) 20 mg IVPUSH Q10M PRN; Protocol PRN Reason: Hypertension Last Admin: 04/14/19 19:42 Dose: 40 mg Labetalol HCl (Normodyne) Confirm Administered Dose 100 mg .ROUTE .STK-MED ONE Stop: 04/14/19 20:17 Labetalol HCl (Normodyne) 200 mg PO TID [facility] Last Admin: 04/15/19 11:08 Dose: 200 mg Labetalol HCl (Normodyne) Confirm Administered Dose 200 mg .ROUTE .STK-MED ONE Stop: 04/15/19 03:22 Labetalol HCl (Normodyne) 300 mg PO BID [facility] Last Admin: 04/15/19 20:46 Dose: 300 mg Labetalol HCl (Normodyne) 400 mg PO BID [facility] Last Admin: 04/16/19 08:38 Dose: 400 mg Labetalol HCl (Normodyne) 600 mg PO ONETIME ONE Stop: 04/16/19 20:46 Last Admin: 04/16/19 20:59 Dose: 600 mg Levothyroxine Sodium (Levothyroxine) 125 mcg PO ACBREAKFAST [facility] Lidocaine HCl (Xylocaine 1%) 50 ml INJECT ONETIME PRN PRN Reason: Laceration repair Methylergonovine Maleate (Methergine) 0.2 mg IM ASDIRECTED PRN PRN Reason: Post Hemorrhage Misoprostol (Cytotec) 200 mcg PO ONETIME PRN PRN Reason: Post Hemorrhage Misoprostol (Cytotec) 25 mcg VAG ONETIME PRN PRN Reason: Cervical Ripening Misoprostol (Cytotec) 25 mcg VAG Q4H PRN PRN Reason: Cervical Ripening Last Admin: 04/15/19 05:48 Dose: 25 mcg Nalbuphine HCl (Nubain) 10 mg IVPUSH Q1H PRN PRN Reason: Pain (severe 7-10) Ondansetron HCl (Zofran) 4 mg IVPUSH Q4H PRN PRN Reason: Nausea/Vomiting Ropivacaine (Naropin 0.2%) Confirm Administered Dose 20 ml .ROUTE .Spinomix-CoAxia ONE Stop: 04/15/19 09:05 Sodium Chloride (Saline Flush) 10 ml FLUSH ASDIRECTED PRN PRN Reason: Keep Vein Open Sodium Chloride (Saline Flush) 2.5 ml FLUSH ASDIRECTED PRN PRN Reason: Keep Vein Open Sodium Chloride (Normal Saline) 10 ml IV ASDIRECTED PRN PRN Reason: IV Use Sodium Chloride (Saline Flush) 10 ml FLUSH ASDIRECTED PRN PRN Reason: Keep Vein Open Sodium Chloride (Saline Flush) 2.5 ml FLUSH ASDIRECTED PRN PRN Reason: Keep Vein Open Sodium Chloride (Normal Saline) 10 ml IV ASDIRECTED PRN PRN Reason: IV Use Sterile Water (Sterile Water For Irrigation) 1,000 ml IRR ASDIRECTED PRN PRN Reason: delivery Last Admin: 04/15/19 14:53 Dose: 1,000 ml Terbutaline Sulfate (Brethine) 0.25 mg SUBCUT ASDIRECTED PRN PRN Reason: Tacysystole - Interaction Infant Disposition, : [place] in Room with Family Infant Interaction: Unable to Hold Infant at this Time Feeding: Breastfed ; Nursed Well Support Person: - Recovery Exam Fundal Tone: Firm Fundal Level: At Umbilicus Fundal Placement: Midline Lochia Amount: Small Lochia Color: Rubra/Red Perineum Description: Intact, Minimal Bruising/Swelling Episiotomy/Laceration: None Bladder Status: Voiding Urinary Elimination: Voided - Exam General: Alert, Oriented HEENT: Pupils Equal Neck: Supple Lungs: Clear to Auscultation, Normal Respiratory Effort Cardiovascular: Regular Rate, Regular Rhythm GI/Abdominal Exam: Normal Bowel Sounds, Soft, No Organomegaly, No Distention, No Mass Extremities: Normal Inspection, Non-Tender. No: No Pedal Edema (1+ equal bilaterally) Skin: Warm, Dry, Intact Wound/Incisions: Healing Well Neurological: No New Focal Deficit Psy/Mental Status: Alert, Normal Affect, Normal Mood - Problem List & Annotations (1) Chronic hypertension affecting SNOMED Code(s): 48075520 Code(s): O10.919 - UNSP PRE-EXISTING HTN COMP , UNSP TRIMESTER Status: Acute Current Visit: Yes (2) Vaginal delivery SNOMED Code(s): 183796743 Code(s): O80 - ENCOUNTER FOR FULL-TERM UNCOMPLICATED DELIVERY Status: Acute Current Visit: Yes - Problem List Review Problem List Initiated/Reviewed/Updated: Yes - My Orders Last 24 Hours: My Active Orders 04/16/19 07:30 Levothyroxine 125 mcg PO ACBREAKFAST 04/17/19 06:00 Labetalol [Normodyne] 600 mg PO TID - Assessment Assessment:: BP still elevated on labetalol 600 mg TID, but is improved, denies any neurologic symptoms. Continue to monitor BP today, increase this afternoon if needed. Continue inpatient until BP's are improved and stable.
[2019-04-17] MEDS ORDERED: Levothyroxine 125 MCG Tab PO SCH (07:30)
[2019-04-17] MEDS: Docusate Sodium 100 MG Cap PO PRN ×2 (09:25→20:36)
[2019-04-17] MEDS: Ibuprofen 800 MG Tab PO PRN (09:25)
[2019-04-17] MEDS: Levothyroxine 125 MCG Tab PO SCH (09:27)
[2019-04-18] MEDS: Ibuprofen 800 MG Tab PO PRN ×4 (00:55→20:09)
[2019-04-18] MEDS ORDERED: NIFEdipine 10 MG Cap PO ONE ×2 (01:47→16:26)
[2019-04-18] MEDS: Labetalol 100 MG Tab PO SCH ×3 (05:51→22:10)
[2019-04-18] MEDS: Levothyroxine 125 MCG Tab PO SCH (07:12)
[2019-04-18] MEDS: Docusate Sodium 100 MG Cap PO PRN (08:31)
[2019-04-18] MEDS ORDERED: NIFEdipine 30 MG Tab.ER PO SCH (09:00)
[2019-04-18] MEDS ORDERED: Labetalol 100 MG Tab PO ONE (10:40)
--- NOTE | 2019-04-18 11:25 | PCM.PNPP ---
- General Info Date of Service: 04/18/19 Subjective Update: 39yo P4 s/p , CHTN , PPD3 , normal lochia , BP 140 /80s- 90s Labetalol increased to 800mg tid Procardia 30mg XL given Nifedipine 10mg X 1 dose given at 230am Negative PIH labs Functional Status: Reports: Pain Controlled, Tolerating Diet, Ambulating, Urinating - Review of Systems General: Reports: No Symptoms HEENT: Reports: No Symptoms Pulmonary: Reports: No Symptoms Cardiovascular: Reports: No Symptoms Gastrointestinal: Reports: No Symptoms Genitourinary: Reports: No Symptoms Musculoskeletal: Reports: No Symptoms Skin: Reports: No Symptoms Neurological: Reports: No Symptoms Psychiatric: Reports: No Symptoms - General Info Date of Service: 04/18/19 - Patient Data Vital Signs - Most Recent: Last Vital Signs Temp 36.8 C 04/18/19 07:20 Pulse 79 04/18/19 11:14 Resp 16 04/18/19 07:20 BP 146/84 H 04/18/19 11:14 Pulse Ox 95 04/18/19 07:20 Weight - Most Recent: 114.804 kg Med Orders - Current: Current Medications Acetaminophen (Tylenol Extra Strength) 500 mg PO Q4H PRN PRN Reason: Pain Acetaminophen (Tylenol Extra Strength) 1,000 mg PO Q4H PRN PRN Reason: Pain Last Admin: 04/16/19 22:46 Dose: 1,000 mg Benzocaine/Menthol (Dermoplast Pain Relief 20%-0.5% [place]) 78 gm TOP ASDIRECTED PRN PRN Reason: Perineal Comfort Measure Last Admin: 04/15/19 15:45 Dose: 1 applic Bisacodyl (Dulcolax) 10 mg RECTAL ONETIME PRN PRN Reason: Constipation Docusate Sodium (Colace) 100 mg PO BID PRN PRN Reason: Constipation Last Admin: 04/18/19 08:31 Dose: 100 mg Emollient Ointment (Lansinoh Hpa) 0 gm TOP ASDIRECTED PRN PRN Reason: Sore Nipples Last Admin: 04/15/19 15:44 Dose: 1 applic Tranexamic Acid 1,000 mg/ (Sodium Chloride) 110 mls @ 660 mls/hr IV ONETIME PRN PRN Reason: Bleeding Ibuprofen (Motrin) 400 mg PO Q4H PRN PRN Reason: Pain Ibuprofen (Motrin) 800 mg PO Q6H PRN PRN Reason: Pain Last Admin: 04/18/19 08:31 Dose: 800 mg Labetalol HCl (Normodyne) 800 mg PO TID [facility] Levothyroxine Sodium (Levothyroxine) 125 mcg PO ACBREAKFAST [facility] Last Admin: 04/18/19 07:12 Dose: 125 mcg Nifedipine (Procardia Xl) 30 mg PO DAILY [facility] Last Admin: 04/18/19 08:24 Dose: 30 mg Oxycodone HCl (Oxycodone) 5 mg PO Q2H PRN PRN Reason: Pain Witch Estefania (Tucks) 1 pad TOP ASDIRECTED PRN PRN Reason: comfort care Discontinued Medications Acetaminophen (Tylenol Extra Strength) 1,000 mg PO Q6H PRN PRN Reason: Pain Last Admin: 04/14/19 21:44 Dose: 1,000 mg Acetaminophen (Tylenol Extra Strength) Confirm Administered Dose 1,000 mg .ROUTE .STK-MED ONE Stop: 04/14/19 21:41 Butorphanol Tartrate (Stadol) 1 mg IVPUSH Q1H PRN PRN Reason: Pain Calcium Gluconate (Calcium Gluconate) 1 gm IV ASDIRECTED PRN PRN Reason: respiratory distress Carboprost Tromethamine (Hemabate Ds) 250 mcg IM ASDIRECTED PRN PRN Reason: Post Hemorrhage Diphenhydramine HCl (Benadryl) 25 mg PO ONETIME ONE Stop: 04/15/19 02:26 Last Admin: 04/15/19 02:30 Dose: 25 mg Diphenhydramine HCl (Benadryl) Confirm Administered Dose 25 mg .ROUTE .STK-MED ONE Stop: 04/15/19 02:28 Fentanyl (Sublimaze) Confirm Administered Dose 100 mcg .ROUTE .STK-MED ONE Stop: 04/15/19 09:04 Hydralazine HCl (Apresoline) Confirm Administered Dose 20 mg .ROUTE .STK-MED ONE Stop: 04/14/19 20:19 Last Admin: 04/14/19 20:21 Dose: 20 mg Hydralazine HCl (Apresoline) 10 mg IVPUSH ONETIME ONE Stop: 04/14/19 20:19 Ampicillin Sodium 2 gm/ Sodium (Chloride) 100 mls @ 200 mls/hr IV ONETIME ONE Stop: 04/14/19 17:02 Last Admin: 04/14/19 17:10 Dose: 200 mls/hr Lactated Ringer's (Ringers, Lactated) 1,000 mls @ 150 mls/hr IV ASDIRECTED SUNSHINE Last Admin: 04/15/19 08:55 Dose: 150 mls/hr Oxytocin/Sodium Chloride (Oxytocin 30 Unit/500 Ml-Ns) 30 unit in 500 mls @ 500 mls/hr IV TITRATE [place] Last Admin: 04/15/19 14:52 Dose: 500 mls/hr Oxytocin/Sodium Chloride (Oxytocin 30 Unit/500 Ml-Ns) 30 unit in 500 mls @ 2 mls/hr IV TITRATE [place]; Protocol Last Titration: 04/15/19 11:41 Dose: 10 munits/min, 10 mls/hr Tranexamic Acid 1,000 mg/ (Sodium Chloride) 110 mls @ 660 mls/hr IV ONETIME PRN PRN Reason: Bleeding Ampicillin Sodium 1 gm/ Sodium (Chloride) 50 mls @ 100 mls/hr IV Q4H [place] Last Admin: 04/15/19 13:23 Dose: 100 mls/hr Magnesium Sulfate 4 gm/ Premix 100 mls @ 300 mls/hr IV BOLUS ONE Stop: 04/15/19 03:13 Magnesium Sulfate (Magnesium Sulfate In Water Premix) 20 gm in 500 mls @ 50 mls /hr IV ASDIRECTED SUNSHINE; Protocol Fentanyl/Bupivacaine HCl ([id number] 2 Mcg/Ml-0.125%) Confirm Administered Dose 100 mls @ as directed .ROUTE .STK-MED ONE Stop: 04/15/19 09:04 Oxytocin/Sodium Chloride (Oxytocin 30 Unit/500 Ml-Ns) Confirm Administered Dose 30 unit in 500 mls @ as directed .ROUTE .STK-MED ONE Stop: 04/15/19 14:40 Last Admin: 04/16/19 09:20 Dose: Not Given Labetalol HCl (Normodyne) 20 mg IVPUSH Q10M PRN; Protocol PRN Reason: Hypertension Last Admin: 04/14/19 19:42 Dose: 40 mg Labetalol HCl (Normodyne) Confirm Administered Dose 100 mg .ROUTE .STK-MED ONE Stop: 04/14/19 20:17 Labetalol HCl (Normodyne) 200 mg PO TID [facility] Last Admin: 04/15/19 11:08 Dose: 200 mg Labetalol HCl (Normodyne) Confirm Administered Dose 200 mg .ROUTE .STK-MED ONE Stop: 04/15/19 03:22 Labetalol HCl (Normodyne) 300 mg PO BID [facility] Last Admin: 04/15/19 20:46 Dose: 300 mg Labetalol HCl (Normodyne) 400 mg PO BID [facility] Last Admin: 04/16/19 08:38 Dose: 400 mg Labetalol HCl (Normodyne) 600 mg PO TID [facility] Last Admin: 04/18/19 05:51 Dose: 600 mg Labetalol HCl (Normodyne) 600 mg PO ONETIME ONE Stop: 04/16/19 20:46 Last Admin: 04/16/19 20:59 Dose: 600 mg Labetalol HCl (Normodyne) 200 mg PO ONETIME ONE Stop: 04/18/19 10:41 Last Admin: 04/18/19 11:14 Dose: 200 mg Levothyroxine Sodium (Levothyroxine) 125 mcg PO ACBREAKFAST [facility] Lidocaine HCl (Xylocaine 1%) 50 ml INJECT ONETIME PRN PRN Reason: Laceration repair Methylergonovine Maleate (Methergine) 0.2 mg IM ASDIRECTED PRN PRN Reason: Post Hemorrhage Misoprostol (Cytotec) 200 mcg PO ONETIME PRN PRN Reason: Post Hemorrhage Misoprostol (Cytotec) 25 mcg VAG ONETIME PRN PRN Reason: Cervical Ripening Misoprostol (Cytotec) 25 mcg VAG Q4H PRN PRN Reason: Cervical Ripening Last Admin: 04/15/19 05:48 Dose: 25 mcg Nalbuphine HCl (Nubain) 10 mg IVPUSH Q1H PRN PRN Reason: Pain (severe 7-10) Nifedipine (Procardia) 10 mg PO ONETIME ONE Stop: 04/18/19 01:48 Last Admin: 04/18/19 02:29 Dose: 10 mg Ondansetron HCl (Zofran) 4 mg IVPUSH Q4H PRN PRN Reason: Nausea/Vomiting Ropivacaine (Naropin 0.2%) Confirm Administered Dose 20 ml .ROUTE .STK-MED ONE Stop: 04/15/19 09:05 Sodium Chloride (Saline Flush) 10 ml FLUSH ASDIRECTED PRN PRN Reason: Keep Vein Open Sodium Chloride (Saline Flush) 2.5 ml FLUSH ASDIRECTED PRN PRN Reason: Keep Vein Open Sodium Chloride (Normal Saline) 10 ml IV ASDIRECTED PRN PRN Reason: IV Use Sodium Chloride (Saline Flush) 10 ml FLUSH ASDIRECTED PRN PRN Reason: Keep Vein Open Sodium Chloride (Saline Flush) 2.5 ml FLUSH ASDIRECTED PRN PRN Reason: Keep Vein Open Sodium Chloride (Normal Saline) 10 ml IV ASDIRECTED PRN PRN Reason: IV Use Sterile Water (Sterile Water For Irrigation) 1,000 ml IRR ASDIRECTED PRN PRN Reason: delivery Last Admin: 04/15/19 14:53 Dose: 1,000 ml Terbutaline Sulfate (Brethine) 0.25 mg SUBCUT ASDIRECTED PRN PRN Reason: Tacysystole - Interaction Infant Disposition, : in Room with Family Infant Interaction: Unable to Hold Infant at this Time Feeding: Breastfed ; Nursed Well Support Person: - Recovery Exam Fundal Tone: Firm Fundal Level: At Umbilicus Fundal Placement: Midline Lochia Amount: Scant Lochia Color: Rubra/Red Perineum Description: Intact, Minimal Bruising/Swelling Episiotomy/Laceration: None Bladder Status: Voiding Urinary Elimination: Voided - Exam General: Alert HEENT: Pupils Equal Neck: Supple Lungs: Clear to Auscultation Cardiovascular: Regular Rate, Regular Rhythm GI/Abdominal Exam: Normal Bowel Sounds Extremities: Normal Inspection Psy/Mental Status: Alert - Problem List & Annotations (1) Chronic hypertension affecting SNOMED Code(s): 00493078 Code(s): O10.919 - UNSP PRE-EXISTING HTN COMP , UNSP TRIMESTER Status: Acute Current Visit: Yes (2) Vaginal delivery SNOMED Code(s): 242479493 Code(s): O80 - ENCOUNTER FOR FULL-TERM UNCOMPLICATED DELIVERY Status: Acute Current Visit: Yes - Problem List Review Problem List Initiated/Reviewed/Updated: Yes - My Orders Last 24 Hours: My Active Orders 04/18/19 09:00 NIFEdipine [Procardia XL] 30 mg PO DAILY 04/18/19 14:00 Labetalol [Normodyne] 800 mg PO TID - Assessment Assessment:: 39yo P4 s/p , CHTN , PPD3 , normal lochia , BP 140 /80s- 90s Labetalol increased to 800mg tid Procardia 30mg XL given Nifedipine 10mg X 1 dose given at 230am Negative PIH labs - Plan Plan:: Patient wants to go home today, informed her that if her BP is well controlled will discharge home Wll have her follow up in 2-3 days if discharged Patient to get BP machine to take BP , informed of severe range BP 160/110
--- NOTE | 2019-04-18 19:13 | PCM.SN ---
- Free Text/Narrative Note: Patient seen at bedside and informed about the plan of care Nifedipine 20mg stat give Procardia XL will be increased to 60mg in the Am, i will observe till noon tomorrow if BP is ranging from 120s - 140/60s - 80s i will d/c home tomorrow. PIH labs will be drawn
[2019-04-18 19:55] LABS: BLOOD UREA NITROGEN,BUN 10 mg/dL (7.0-18.0); CARBON DIOXIDE,CO2 24.5 mmol/L (21.0-32.0); CHLORIDE,CL 103 mmol/L (98-107); GLUCOSE RANDOM 100 mg/dL (74-106); POTASSIUM,K 3.8 mmol/L (3.5-5.1); SODIUM,NA 138 mmol/L (136-145)
[2019-04-19] MEDS: Labetalol 100 MG Tab PO SCH (06:08)
[2019-04-19] MEDS: Levothyroxine 125 MCG Tab PO SCH (07:20)
[2019-04-19 07:49] LABS: BLOOD UREA NITROGEN,BUN 10 mg/dL (7.0-18.0); CHLORIDE,CL 103 mmol/L (98-107); GLUCOSE RANDOM 92 mg/dL (74-106); POTASSIUM,K 3.9 mmol/L (3.5-5.1); SODIUM,NA 138 mmol/L (136-145)
[2019-04-19] MEDS ORDERED: NIFEdipine 30 MG Tab.ER PO SCH ×2 (09:00)
--- NOTE | 2019-04-19 11:26 | PCM.PNPP ---
- General Info Date of Service: 04/19/19 Subjective Update: 39yo P4 s/p , CHTN , PPD4, normal lochia , BP 130s - 140s /80s - 90s , she denies headache RUQ pain and BV Labetalol now 800mg tid Procardia now 60mg ER LFTs stable Functional Status: Reports: Pain Controlled, Tolerating Diet, Ambulating, Urinating - Review of Systems General: Reports: No Symptoms HEENT: Reports: No Symptoms Pulmonary: Reports: No Symptoms Cardiovascular: Reports: No Symptoms Gastrointestinal: Reports: No Symptoms Genitourinary: Reports: No Symptoms Musculoskeletal: Reports: No Symptoms Skin: Reports: No Symptoms Neurological: Reports: No Symptoms Psychiatric: Reports: No Symptoms - General Info Date of Service: 04/19/19 - Patient Data Vital Signs - Most Recent: Last Vital Signs Temp 36.8 C 04/18/19 07:20 Pulse 89 04/19/19 06:08 Resp 18 04/18/19 19:00 BP 139/82 04/19/19 09:07 Pulse Ox 97 04/18/19 19:00 Weight - Most Recent: 114.804 kg Lab Results - Last 24 Hours: Laboratory Results - last 24 hr 04/18/19 04/18/19 04/19/19 Range/Units 19:30 19:30 07:03 WBC 10.19 (4.0-11.0) K/uL RBC 3.67 L (4.30-5.90) M/uL Hgb 11.4 L (12.0-16.0) g/dL Hct 34.6 L (36.0-46.0) % MCV 94.3 (80.0-98.0) fL MCH 31.1 (27.0-32.0) pg MCHC 32.9 (31.0-37.0) g/dL RDW Std Deviation 48.9 (28.0-62.0) fl RDW Coeff of Meliton 14 (11.0-15.0) % Plt Count 210 (150-400) K/uL MPV 10.90 (7.40-12.00) fL Nucleated RBC % 0.0 /100WBC Nucleated RBCs # 0 K/uL Sodium 138 138 (136-145) mmol/L Potassium 3.8 3.9 (3.5-5.1) mmol/L Chloride 103 103 (98-107) mmol/L Carbon Dioxide 24.5 23.0 (21.0-32.0) mmol/L BUN 10 10 (7.0-18.0) mg/dL Creatinine 0.7 0.7 (0.6-1.0) mg/dL Est Cr Clr Drug Dosing 107.00 107.00 mL/min Estimated GFR (MDRD) > 60.0 > 60.0 ml/min Glucose 100 92 (74-106) mg/dL Calcium 8.6 8.7 (8.5-10.1) mg/dL Total Bilirubin 0.4 0.5 (0.2-1.0) mg/dL AST 38 H 34 (15-37) IU/L ALT 33 35 (14-63) IU/L Alkaline Phosphatase 80 77 (46-116) U/L Total Protein 6.7 6.7 (6.4-8.2) g/dL Albumin 2.4 L 2.4 L (3.4-5.0) g/dL Globulin 4.3 H 4.3 H (2.6-4.0) g/dL Albumin/Globulin Ratio 0.6 L 0.6 L (0.9-1.6) Med Orders - Current: Current Medications Acetaminophen (Tylenol Extra Strength) 500 mg PO Q4H PRN PRN Reason: Pain Acetaminophen (Tylenol Extra Strength) 1,000 mg PO Q4H PRN PRN Reason: Pain Last Admin: 04/16/19 22:46 Dose: 1,000 mg Benzocaine/Menthol (Dermoplast Pain Relief 20%-0.5% [place]) 78 gm TOP ASDIRECTED PRN PRN Reason: Perineal Comfort Measure Last Admin: 04/15/19 15:45 Dose: 1 applic Bisacodyl (Dulcolax) 10 mg RECTAL ONETIME PRN PRN Reason: Constipation Docusate Sodium (Colace) 100 mg PO BID PRN PRN Reason: Constipation Last Admin: 04/18/19 08:31 Dose: 100 mg Emollient Ointment (Lansinoh Hpa) 0 gm TOP ASDIRECTED PRN PRN Reason: Sore Nipples Last Admin: 04/15/19 15:44 Dose: 1 applic Tranexamic Acid 1,000 mg/ (Sodium Chloride) 110 mls @ 660 mls/hr IV ONETIME PRN PRN Reason: Bleeding Ibuprofen (Motrin) 400 mg PO Q4H PRN PRN Reason: Pain Ibuprofen (Motrin) 800 mg PO Q6H PRN PRN Reason: Pain Last Admin: 04/18/19 20:09 Dose: 800 mg Labetalol HCl (Normodyne) 800 mg PO TID [facility] Last Admin: 04/19/19 06:08 Dose: 800 mg Levothyroxine Sodium (Levothyroxine) 125 mcg PO ACBREAKFAST [facility] Last Admin: 04/19/19 07:20 Dose: 125 mcg Nifedipine (Procardia Xl) 60 mg PO DAILY [facility] Last Admin: 04/19/19 09:07 Dose: 60 mg Oxycodone HCl (Oxycodone) 5 mg PO Q2H PRN PRN Reason: Pain Witch Estefania (Tucks) 1 pad TOP ASDIRECTED PRN PRN Reason: comfort care Discontinued Medications Acetaminophen (Tylenol Extra Strength) 1,000 mg PO Q6H PRN PRN Reason: Pain Last Admin: 04/14/19 21:44 Dose: 1,000 mg Acetaminophen (Tylenol Extra Strength) Confirm Administered Dose 1,000 mg .ROUTE .STK-MED ONE Stop: 04/14/19 21:41 Butorphanol Tartrate (Stadol) 1 mg IVPUSH Q1H PRN PRN Reason: Pain Calcium Gluconate (Calcium Gluconate) 1 gm IV ASDIRECTED PRN PRN Reason: respiratory distress Carboprost Tromethamine (Hemabate Ds) 250 mcg IM ASDIRECTED PRN PRN Reason: Post Hemorrhage Diphenhydramine HCl (Benadryl) 25 mg PO ONETIME ONE Stop: 04/15/19 02:26 Last Admin: 04/15/19 02:30 Dose: 25 mg Diphenhydramine HCl (Benadryl) Confirm Administered Dose 25 mg .ROUTE .STK-MED ONE Stop: 04/15/19 02:28 Fentanyl (Sublimaze) Confirm Administered Dose 100 mcg .ROUTE .STK-MED ONE Stop: 04/15/19 09:04 Hydralazine HCl (Apresoline) Confirm Administered Dose 20 mg .ROUTE .STK-MED ONE Stop: 04/14/19 20:19 Last Admin: 04/14/19 20:21 Dose: 20 mg Hydralazine HCl (Apresoline) 10 mg IVPUSH ONETIME ONE Stop: 04/14/19 20:19 Ampicillin Sodium 2 gm/ Sodium (Chloride) 100 mls @ 200 mls/hr IV ONETIME ONE Stop: 04/14/19 17:02 Last Admin: 04/14/19 17:10 Dose: 200 mls/hr Lactated Ringer's (Ringers, Lactated) 1,000 mls @ 150 mls/hr IV ASDIRECTED [place] Last Admin: 04/15/19 08:55 Dose: 150 mls/hr Oxytocin/Sodium Chloride (Oxytocin 30 Unit/500 Ml-Ns) 30 unit in 500 mls @ 500 mls/hr IV TITRATE [place] Last Admin: 04/15/19 14:52 Dose: 500 mls/hr Oxytocin/Sodium Chloride (Oxytocin 30 Unit/500 Ml-Ns) 30 unit in 500 mls @ 2 mls/hr IV TITRATE [place]; Protocol Last Titration: 04/15/19 11:41 Dose: 10 munits/min, 10 mls/hr Tranexamic Acid 1,000 mg/ (Sodium Chloride) 110 mls @ 660 mls/hr IV ONETIME PRN PRN Reason: Bleeding Ampicillin Sodium 1 gm/ Sodium (Chloride) 50 mls @ 100 mls/hr IV Q4H [place] Last Admin: 04/15/19 13:23 Dose: 100 mls/hr Magnesium Sulfate 4 gm/ Premix 100 mls @ 300 mls/hr IV BOLUS ONE Stop: 04/15/19 03:13 Magnesium Sulfate (Magnesium Sulfate In Water Premix) 20 gm in 500 mls @ 50 mls /hr IV ASDIRECTED [place]; Protocol Fentanyl/Bupivacaine HCl (Soqcjeet-Fofvn-Dt 2 Mcg/Ml-0.125%) Confirm Administered Dose 100 mls @ as directed .ROUTE .STK-MED ONE Stop: 04/15/19 09:04 Oxytocin/Sodium Chloride (Oxytocin 30 Unit/500 Ml-Ns) Confirm Administered Dose 30 unit in 500 mls @ as directed .ROUTE .STK-MED ONE Stop: 04/15/19 14:40 Last Admin: 04/16/19 09:20 Dose: Not Given Labetalol HCl (Normodyne) 20 mg IVPUSH Q10M PRN; Protocol PRN Reason: Hypertension Last Admin: 04/14/19 19:42 Dose: 40 mg Labetalol HCl (Normodyne) Confirm Administered Dose 100 mg .ROUTE .STK-MED ONE Stop: 04/14/19 20:17 Labetalol HCl (Normodyne) 200 mg PO TID [facility] Last Admin: 04/15/19 11:08 Dose: 200 mg Labetalol HCl (Normodyne) Confirm Administered Dose 200 mg .ROUTE .STK-MED ONE Stop: 04/15/19 03:22 Labetalol HCl (Normodyne) 300 mg PO BID [facility] Last Admin: 04/15/19 20:46 Dose: 300 mg Labetalol HCl (Normodyne) 400 mg PO BID [facility] Last Admin: 04/16/19 08:38 Dose: 400 mg Labetalol HCl (Normodyne) 600 mg PO TID [facility] Last Admin: 04/18/19 05:51 Dose: 600 mg Labetalol HCl (Normodyne) 600 mg PO ONETIME ONE Stop: 04/16/19 20:46 Last Admin: 04/16/19 20:59 Dose: 600 mg Labetalol HCl (Normodyne) 200 mg PO ONETIME ONE Stop: 04/18/19 10:41 Last Admin: 04/18/19 11:14 Dose: 200 mg Levothyroxine Sodium (Levothyroxine) 125 mcg PO ACBREAKFAST [facility] Lidocaine HCl (Xylocaine 1%) 50 ml INJECT ONETIME PRN PRN Reason: Laceration repair Methylergonovine Maleate (Methergine) 0.2 mg IM ASDIRECTED PRN PRN Reason: Post Hemorrhage Misoprostol (Cytotec) 200 mcg PO ONETIME PRN PRN Reason: Post Hemorrhage Misoprostol (Cytotec) 25 mcg VAG ONETIME PRN PRN Reason: Cervical Ripening Misoprostol (Cytotec) 25 mcg VAG Q4H PRN PRN Reason: Cervical Ripening Last Admin: 04/15/19 05:48 Dose: 25 mcg Nalbuphine HCl (Nubain) 10 mg IVPUSH Q1H PRN PRN Reason: Pain (severe 7-10) Nifedipine (Procardia) 10 mg PO ONETIME ONE Stop: 04/18/19 01:48 Last Admin: 04/18/19 02:29 Dose: 10 mg Nifedipine (Procardia Xl) 30 mg PO DAILY [facility] Last Admin: 04/18/19 08:24 Dose: 30 mg Nifedipine (Procardia) 20 mg PO ONETIME ONE Stop: 04/18/19 16:27 Last Admin: 04/18/19 16:42 Dose: 20 mg Ondansetron HCl (Zofran) 4 mg IVPUSH Q4H PRN PRN Reason: Nausea/Vomiting Ropivacaine (Naropin 0.2%) Confirm Administered Dose 20 ml .ROUTE .STK-MED ONE Stop: 04/15/19 09:05 Sodium Chloride (Saline Flush) 10 ml FLUSH ASDIRECTED PRN PRN Reason: Keep Vein Open Sodium Chloride (Saline Flush) 2.5 ml FLUSH ASDIRECTED PRN PRN Reason: Keep Vein Open Sodium Chloride (Normal Saline) 10 ml IV ASDIRECTED PRN PRN Reason: IV Use Sodium Chloride (Saline Flush) 10 ml FLUSH ASDIRECTED PRN PRN Reason: Keep Vein Open Sodium Chloride (Saline Flush) 2.5 ml FLUSH ASDIRECTED PRN PRN Reason: Keep Vein Open Sodium Chloride (Normal Saline) 10 ml IV ASDIRECTED PRN PRN Reason: IV Use Sterile Water (Sterile Water For Irrigation) 1,000 ml IRR ASDIRECTED PRN PRN Reason: delivery Last Admin: 04/15/19 14:53 Dose: 1,000 ml Terbutaline Sulfate (Brethine) 0.25 mg SUBCUT ASDIRECTED PRN PRN Reason: Tacysystole - Infant Interaction Infant Disposition, : in Room with Family Interaction: Unable to Hold at this Time Infant Feeding: Breastfed ; Nursed Well Support Person: - Recovery Exam Fundal Tone: Firm Fundal Level: 1 Fingerbreadths Below Umbilicus Fundal Placement: Midline Lochia Amount: Scant Lochia Color: Rubra/Red Perineum Description: Intact, Minimal Bruising/Swelling Episiotomy/Laceration: None Bladder Status: Voiding Urinary Elimination: Voided - Exam General: Alert HEENT: Pupils Equal Neck: Supple Lungs: Clear to Auscultation Cardiovascular: Regular Rate, Regular Rhythm GI/Abdominal Exam: Normal Bowel Sounds Extremities: Normal Inspection Neurological: No New Focal Deficit Psy/Mental Status: Alert - Problem List & Annotations (1) Chronic hypertension affecting SNOMED Code(s): 31828685 Code(s): O10.919 - UNSP PRE-EXISTING HTN COMP , UNSP TRIMESTER Status: Acute Current Visit: Yes (2) Vaginal delivery SNOMED Code(s): 331378061 Code(s): O80 - ENCOUNTER FOR FULL-TERM UNCOMPLICATED DELIVERY Status: Acute Current Visit: Yes - Problem List Review Problem List Initiated/Reviewed/Updated: Yes - My Orders Last 24 Hours: My Active Orders 04/18/19 11:28 Ready for Discharge [RC] PER UNIT ROUTINE 04/18/19 14:00 Labetalol [Normodyne] 800 mg PO TID 04/19/19 09:00 NIFEdipine [Procardia XL] 60 mg PO DAILY 04/19/19 11:15 Ready for Discharge [RC] PER UNIT ROUTINE - Assessment Assessment:: 39yo P4 s/p , CHTN with superimposed preclampsia , PPD4 , normal lochia , BP 130s 140 /80s- 90s - Plan Plan:: Discharge home She has purchased BP machine Preclampsia precautions
== END 2019-04-19 11:45 | disposition home or self-care (01) | DRG 560 ==
LOC: MW.OBCHECK 16:06 → MW.OB 16:33 → MW.MS 04-15 13:07 → MW.OB 04-15 13:14 → OBSVTOIN 04-15 14:03 → MW.OB 04-15 18:07
PROVIDERS: ADMIT Obstetrics & Gynecology; ATTEND Obstetrics & Gynecology
PROC: 10E0XZZ Delivery of Products of Conception, External Approach (ICD-10-PCS; principal; 2019-04-15)
PROC: 3E033VJ Introduction of Other Hormone into Peripheral Vein, Percutaneous Approach (ICD-10-PCS; 2019-04-15)
PROC: 4A1HXCZ Monitoring of Products of Conception, Cardiac Rate, External Approach (ICD-10-PCS; 2019-04-15)
PROC: 10907ZC Drainage of Amniotic Fluid, Therapeutic from Products of Conception, Via Natural or Artificial Opening (ICD-10-PCS; 2019-04-15)
DX: O11.4 Pre-existing hypertension with pre-eclampsia, complicating childbirth (principal); O99.284 Endocrine, nutritional and metabolic diseases complicating childbirth; E03.9 Hypothyroidism, unspecified; Z3A.38 38 weeks gestation of pregnancy; Z37.0 Single live birth
CPT/HCPCS: 36415; 51702; 59025; 59409; 80053; 82570; 82803; 84156; 84550; 85014; 85018; 85027; 86850; 86900; 86901; 88307; A9270-GY; J0290; J0360; J2590; J3490; J7030; J7050; J7120